=== PATIENT | female | born 1970 | race Hispanic/Latino ===

== ENCOUNTER 2018-01-13 12:31 | Inpatient (IN) | payer OTHER ==
[2018-01-13] MEDS ORDERED: Sodium Chloride 0.9% 1,000 ML IV STA (13:04)
--- NOTE | 2018-01-13 13:10 | ED PDOC ---
HPI: Abdomen Time Seen by Provider: 01/13/18 12:41 Chief Complaint (Nursing): Abdominal Pain Chief Complaint (Provider): abdominal pain History Per: Patient History/Exam Limitations: no limitations Onset/Duration Of Symptoms: Days (x3) Outside of [place] travel?: No Current Symptoms Are (Timing): Still Present Quality Of Discomfort: Cramping Associated Symptoms: Nausea, Diarrhea (non bloody, watery). denies: Fever, Chills, Vomiting Additional Complaint(s): Neda De Los Santos is a 47 year old female, with no significant past medical history , who presents to the emergency department complaining of a crampy abdominal pain associated with nausea and diarrhea onset for x3 days. Patient describes the diarrhea as non-bloody and watery. She denies any fever, chills, vomiting, recent travel, sick contacts or eating unusual foods. No further medical complaints. PMD: None provided. Past Medical History Reviewed: Historical Data, Nursing Documentation, Vital Signs Vital Signs: Last Vital Signs Temp 98.7 F 01/13/18 12:33 Pulse 88 01/13/18 12:33 Resp 16 01/13/18 12:33 BP 131/90 01/13/18 12:33 Pulse Ox 98 01/13/18 17:53 - Medical History PMH: No Chronic Diseases - Surgical History Surgical History: No Surg Hx - Family History Family History: States: No Known Family Hx - Social History Current smoker - smoking cessation education provided: No Alcohol: Social Drugs: Denies - Allergies Allergies/Adverse Reactions: Allergies Allergy/AdvReac Type Severity Reaction Status Date / Time tomato Allergy RASH Verified 01/13/18 12:33 Review of Systems ROS Statement: Except As Marked, All Systems Reviewed And Found Negative Constitutional: Negative for: Fever, Chills Gastrointestinal: Positive for: Nausea, Abdominal Pain (crampy), Diarrhea ( watery and non bloody). Negative for: Vomiting Physical Exam - Reviewed Nursing Documentation Reviewed: Yes Vital Signs Reviewed: Yes - Physical Exam Appears: Positive for: Non-toxic Head Exam: Positive for: ATRAUMATIC, NORMOCEPHALIC Skin: Positive for: Normal Color, Warm, Dry Eye Exam: Positive for: Normal appearance, EOMI, PERRL Neck: Positive for: Painless ROM Cardiovascular/Chest: Positive for: Regular Rate, Rhythm. Negative for: Murmur Respiratory: Positive for: Normal Breath Sounds. Negative for: Respiratory Distress Gastrointestinal/Abdominal: Positive for: Normal Exam, Soft. Negative for: Tenderness, Guarding, Rebound Back: Positive for: Normal Inspection. Negative for: L CVA Tenderness, R CVA Tenderness, Vertebral Tenderness Extremity: Positive for: Normal ROM (upper and lower extremities). Negative for : Deformity, Swelling Neurologic/Psych: Positive for: Alert, Oriented. Negative for: Motor/Sensory Deficits - Laboratory Results Result Diagrams: 01/13/18 13:40 01/13/18 13:40 - ECG O2 Sat by Pulse Oximetry: 98 (RA) Pulse Ox Interpretation: Normal Medical Decision Making Medical Decision Making: Initial Impression: abdominal pain & diarrhea. R/o gastroenteritis vs colitis Initial Plan: --CMP --CBC w/ differential --Pepcid 20 mg IVP --Sodium Chloride 1,000 ml IV 999 mls/hr --Zofran ODT 4 mg PO --Ova and parasite --Stool culture --Reevaluation 1730: CT Abdomen and Pelvis FINDINGS: LOWER THORAX: Unremarkable. LIVER: Unremarkable. No gross lesion or ductal dilatation. GALLBLADDER AND BILE DUCTS: Unremarkable. PANCREAS: Unremarkable. No gross lesion or ductal dilatation. SPLEEN: Unremarkable. ADRENALS: Unremarkable. No mass. KIDNEYS AND URETERS: Unremarkable. No hydronephrosis. No solid mass. VASCULATURE: Unremarkable. No aortic aneurysm. BOWEL: There is diffuse mural thickening throughout the colon especially in the ascending colon. The findings are consistent with colitis APPENDIX: Normal appendix. PERITONEUM: Unremarkable. No free fluid. No free air. LYMPH NODES: Unremarkable. No enlarged lymph nodes. BLADDER: Unremarkable. REPRODUCTIVE: Calcified fibroids. The largest measuring 3.8 cm BONES: No acute fracture. OTHER FINDINGS: None. IMPRESSION: Diffuse colitis [address] findings, IV Cippro and Flagyl ordered. Scribe Attestation: Documented by Jeff Grubbs, acting as a scribe for Christiane Damon MD Provider Scribe Attestation: All medical record entries made by the Scribe were at my direction and personally dictated by me. I have reviewed the chart and agree that the record accurately reflects my personal performance of the history, physical exam, medical decision making, and the department course for this patient. I have also personally directed, reviewed, and agree with the discharge instructions and disposition. Disposition - Disposition Forms: [employer] ([place])
[2018-01-13 13:55] LABS: BASO % 0.2 % (0.0-2.0); EOS % 0.4 % (0.0-4.0); HEMOGLOBIN 15.1 g/dL (12.0-16.0); LYMPH # 0.7 K/uL (1.0-4.3); LYMPH % 6.1 % (20.0-40.0); MEAN CELL VOLUME 94.1 fl (81.0-99.0); MEAN CORPUSCULAR HEMOGLOBIN 32.3 pg (27.0-31.0); MEAN CORPUSCULAR HGB CONC 34.3 g/dL (33.0-37.0); MEAN PLATELET VOLUME 8.2 fl (7.2-11.7); MONO # 0.8 K/uL (0.0-0.8); MONO % 7.2 % (0.0-10.0); NEUT # 9.9 K/uL (1.8-7.0); NEUT % 86.1 % (50.0-75.0); PLATELET COUNT 221 K/uL (130-400); RBC 4.67 Mil/uL (3.80-5.20); WHITE BLOOD COUNT 11.5 K/uL (4.8-10.8)
[2018-01-13 14:01] LABS: ALB/GLOB RATIO 1.3 (1.0-2.1); ALT/SGPT 49 U/L (9-52); AST/SGOT 40 U/L (14-36); BLOOD UREA NITROGEN 9 mg/dl (7-17); CALCIUM 9.4 mg/dL (8.4-10.2); GFR AFRICAN-AMERICAN > 60; GFR NON-AFRICAN AMERICAN > 60
[2018-01-13] MEDS ORDERED: Iohexol 240 (50 ml) PO ONE (14:26)
[2018-01-13] MEDS ORDERED: Iohexol 240 (50 ml) ONE (14:43)
[2018-01-13 14:58] LABS: BANDS 2 % (0-2); EOSINOPHIL 1 % (0-7); LYMPHOCYTE 8 % (20-50); MONOCYTE 5 % (0-10); NEUTROPHIL 84 % (42-75); PLATELET ESTIMATE NORMAL (NORMAL); TOTAL CELLS COUNTED 100
[2018-01-13] MEDS ORDERED: Iohexol 300 100 ML IJ ONE (15:28)
[2018-01-13] MEDS ORDERED: Sodium Chloride 0.9% 100 ML ONE (15:28)
--- NOTE | 2018-01-13 17:15 | CT ---
PROCEDURE: CT Abdomen and Pelvis with contrast HISTORY: abdominal pain, diarreha COMPARISON: None. TECHNIQUE: Contrast dose: 90 cc of Omni 300 Radiation dose: Total exam DLP = 560 mGy-cm. This CT exam was performed using one or more of the following dose reduction techniques: Automated exposure control, adjustment of the mA and/or kV according to patient size, and/or use of iterative reconstruction technique. FINDINGS: LOWER THORAX: Unremarkable. LIVER: Unremarkable. No gross lesion or ductal dilatation. GALLBLADDER AND BILE DUCTS: Unremarkable. PANCREAS: Unremarkable. No gross lesion or ductal dilatation. SPLEEN: Unremarkable. ADRENALS: Unremarkable. No mass. KIDNEYS AND URETERS: Unremarkable. No hydronephrosis. No solid mass. VASCULATURE: Unremarkable. No aortic aneurysm. BOWEL: There is diffuse mural thickening throughout the colon especially in the ascending colon. The findings are consistent with colitis APPENDIX: Normal appendix. PERITONEUM: Unremarkable. No free fluid. No free air. LYMPH NODES: Unremarkable. No enlarged lymph nodes. BLADDER: Unremarkable. REPRODUCTIVE: Calcified fibroids. The largest measuring 3.8 cm BONES: No acute fracture. OTHER FINDINGS: None. IMPRESSION: Diffuse colitis
[2018-01-13] MEDS ORDERED: Ciprofloxacin 400mg/200ml D5W 400 MG/200 ML BAG IVPB STA (17:58)
[2018-01-13] MEDS ORDERED: metroNIDAZOLE 500mg/100ml NS 100 ML IVPB SCH (18:00)
[2018-01-13] MEDS ORDERED: metroNIDAZOLE 500mg/100ml NS 100 ML IVPB ONE (18:31)
[2018-01-13] MEDS ORDERED: Ciprofloxacin 400mg/200ml D5W 400 MG/200 ML BAG IVPB ONE (18:32)
[2018-01-13] MEDS ORDERED: metroNIDAZOLE 500mg/100ml NS 100 ML IVPB STA (18:56)
[2018-01-13] MEDS ORDERED: Lactated Ringer's 1,000 ML IV STA (21:00)
[2018-01-13] MEDS ORDERED: Sodium Chloride 0.9% 1,000 ML IV SCH (21:30)
--- NOTE | 2018-01-13 21:49 | ED PDOC ---
- Laboratory Results Result Diagrams: 01/13/18 13:40 01/13/18 13:40 - ECG O2 Sat by Pulse Oximetry: 94 Medical Decision Making Medical Decision Making: Time: 1899 Patient signed out to me by Dr. Damon pending reevaluation. Time: 2099 As patient was completing her IV antibiotics course, her repeat temperature was 101 F. Provider informed from lab that patient is + for C. Diff antigen Time: 2117 Case discussed with Jaison De La Vega, who will admit patient on behalf of Dr. Cho. Diagnosis: C. Diff colitis Patient placed in isolation, additional IV fluids given. Tylenol, lactate and blood culture ordered. Scribe Attestation: Documented by Maral Gleason, acting as a scribe for Craig Hall MD Provider Scribe Attestation: All medical record entries made by the Scribe were at my direction and personally dictated by me. I have reviewed the chart and agree that the record accurately reflects my personal performance of the history, physical exam, medical decision making, and the department course for this patient. I have also personally directed, reviewed, and agree with the discharge instructions and disposition. Disposition - Clinical Impression Clinical Impression: C. difficile colitis - POA Present On Arrival: None - Disposition Disposition: Admitted as In-Patient Disposition Time: 22:00 Condition: FAIR
[2018-01-14] MEDS: metroNIDAZOLE 500mg/100ml NS 100 ML IVPB SCH ×3 (01:23→16:45)
--- NOTE | 2018-01-14 08:53 | CP.PCM.HP ---
History of Present Illness - History of Present Illness History of Present Illness: pt admitted for cdiff colitis after being on augmentin for a foot infection. c/ o diarrhea and decr po x 3 days bell [facility]. no f/c, n/v. no pain at present. bw noted. ct noted. gi pending Present on Admission - Present on Admission Any Indicators Present on Admission: No Review of Systems - Gastrointestinal Gastrointestinal: As Per HPI, Abdominal Pain, Cramping, Diarrhea Past Patient History - Past Medical History & Family History Past Medical History?: Yes - Past Social History Smoking Status: Never Smoked - CARDIAC Hx Cardiac Disorders: No - PULMONARY Hx Respiratory Disorders: No - NEUROLOGICAL Hx Neurological Disorder: No - HEENT Hx HEENT Problems: No - RENAL Hx Chronic Kidney Disease: No - ENDOCRINE/METABOLIC Hx Endocrine Disorders: No - HEMATOLOGICAL/ONCOLOGICAL Hx Blood Disorders: No - INTEGUMENTARY Hx Dermatological Problems: No - MUSCULOSKELETAL/RHEUMATOLOGICAL Hx Musculoskeletal Disorders: No Hx Falls: No - GASTROINTESTINAL Hx Gastrointestinal Disorders: No - GENITOURINARY/GYNECOLOGICAL Hx Genitourinary Disorders: Yes Other/Comment: Uterine fibroid - PSYCHIATRIC Hx Psychophysiologic Disorder: No Hx Substance Use: No - SURGICAL HISTORY Hx Surgeries: Yes Hx Orthopedic Surgery: Yes (Bunionectomy) Other/Comment: lymph node surgery - ANESTHESIA Hx Anesthesia: Yes Hx Anesthesia Reactions: No Hx Malignant Hyperthermia: No Has any member of the family had a problem w/ anesthesia?: No Meds Allergies/Adverse Reactions: Allergies Allergy/AdvReac Type Severity Reaction Status Date / Time tomato Allergy RASH Verified 01/13/18 12:33 Physical Exam - Constitutional Appears: Well, Non-toxic, No Acute Distress - Head Exam Head Exam: ATRAUMATIC, NORMAL INSPECTION, NORMOCEPHALIC - Eye Exam Eye Exam: EOMI, Normal appearance, PERRL Pupil Exam: NORMAL ACCOMODATION, PERRL - ENT Exam ENT Exam: Mucous Membranes Moist, Normal Exam - Neck Exam Neck exam: Positive for: Normal Inspection - Respiratory Exam Respiratory Exam: Clear to Auscultation Bilateral, NORMAL BREATHING PATTERN - Cardiovascular Exam Cardiovascular Exam: REGULAR RHYTHM - GI/Abdominal Exam GI & Abdominal Exam: Normal Bowel Sounds, Soft. absent: Tenderness - Extremities Exam Extremities exam: Positive for: full ROM, normal capillary refill, normal inspection, pedal pulses present - Back Exam Back exam: NORMAL INSPECTION - Neurological Exam Neurological exam: Alert, CN II-XII Intact, Normal Gait, Oriented x3, Reflexes Normal - Psychiatric Exam Psychiatric exam: Normal Affect, Normal Mood - Skin Skin Exam: Dry, Intact, Normal Color, Warm Results - Vital Signs Recent Vital Signs: Last Vital Signs Temp 98.2 F 01/14/18 08:12 Pulse 75 01/14/18 08:12 Resp 20 01/14/18 08:12 BP 103/66 01/14/18 08:12 Pulse Ox 95 01/14/18 08:12 - Labs Result Diagrams: 01/13/18 13:40 01/13/18 13:40 Labs: Laboratory Results - last 24 hr 01/13/18 01/13/18 01/13/18 13:40 13:40 18:05 WBC 11.5 H RBC 4.67 Hgb 15.1 Hct 44.0 MCV 94.1 MCH 32.3 H MCHC 34.3 RDW 13.0 Plt Count 221 MPV 8.2 Neut % (Auto) 86.1 H Lymph % (Auto) 6.1 L [place] % (Auto) 7.2 Eos % (Auto) 0.4 Baso % (Auto) 0.2 Neut # (Auto) 9.9 H Lymph # (Auto) 0.7 L [place] # (Auto) 0.8 Eos # (Auto) 0.0 Baso # (Auto) 0.0 Neutrophils % (Manual) 84 H Band Neutrophils % 2 Lymphocytes % (Manual) 8 L Monocytes % (Manual) 5 Eosinophils % (Manual) 1 Platelet Estimate Normal RBC Morphology Normal Sodium 137 Potassium 4.3 Chloride 96 L Carbon Dioxide 29 Anion Gap 16 BUN 9 Creatinine 0.7 Est GFR ( Amer) > 60 Est GFR (Non-Af Amer) > 60 Random Glucose 92 Lactic Acid Calcium 9.4 Total Bilirubin 0.4 AST 40 H ALT 49 Alkaline Phosphatase 82 Total Protein 7.1 Albumin 4.0 Globulin 3.0 Albumin/Globulin Ratio 1.3 C. difficile Ag & Toxin Positive antigen 01/13/18 21:40 WBC RBC Hgb Hct MCV MCH MCHC RDW Plt Count MPV Neut % (Auto) Lymph % (Auto) [place] % (Auto) Eos % (Auto) Baso % (Auto) Neut # (Auto) Lymph # (Auto) [place] # (Auto) Eos # (Auto) Baso # (Auto) Neutrophils % (Manual) Band Neutrophils % Lymphocytes % (Manual) Monocytes % (Manual) Eosinophils % (Manual) Platelet Estimate RBC Morphology Sodium Potassium Chloride Carbon Dioxide Anion Gap BUN Creatinine Est GFR ( Amer) Est GFR (Non-Af Amer) Random Glucose Lactic Acid 0.6 L Calcium Total Bilirubin AST ALT Alkaline Phosphatase Total Protein Albumin Globulin Albumin/Globulin Ratio C. difficile Ag & Toxin Assessment & Plan (1) DVT prophylaxis Assessment and Plan: cd and ae hose ambulation Status: Acute (2) C. difficile colitis Assessment and Plan: cipro/flagyl gi ivf, po as cara stool c/s pendinbg contact iso Status: Acute Decision To Admit - Pt Status Changed To: Hospital Disposition Of: Inpatient - Admit Certification Admit to Inpatient:: After my assessment, the patient will require hospitalization for at least two midnights. This is because of the severity of symptoms shown, intensity of services needed, and/or the medical risk in this patient being treated as an outpatient. - . Bed Request Type: Med/Surg Admitting Physician: Rao Cho
[2018-01-14] MEDS ORDERED: Ciprofloxacin 400mg/200ml D5W 400 MG/200 ML BAG IVPB SCH (09:00)
--- NOTE | 2018-01-14 12:48 | CP.PCM.CON ---
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 Patient recently developed an infection as a result of an ingrown toenail and was seen by podiatry two weeks ago. She was given prescription for Augmentin which used for four days before developing diffuse cramping abdominal pain, nausea and watery diarrhea. She stopped using medication but had persistence of symptoms and development of fever/chills so she came to the ED for further evaluation. CT scan showed diffuse colitis with initial stool evaluation showing presence of C diff antigen/toxin. Currently, she is having 5 + episodes of loose stool per day. Denies any recent travel or sick contacts. No antibiotic use prior to use of Augmentin last week. No history of prior C diff infection. 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 FHx: Discussed with patient and denies any significant family history Social: Denies tobacco, EtOH or illicit drug use Endo: No prior endoscopic evaluations Past Patient History - Past Medical History & Family History Past Medical History?: Yes - Past Social History Smoking Status: Never Smoked - CARDIAC Hx Cardiac Disorders: No - PULMONARY Hx Respiratory Disorders: No - NEUROLOGICAL Hx Neurological Disorder: No - HEENT Hx HEENT Problems: No - RENAL Hx Chronic Kidney Disease: No - ENDOCRINE/METABOLIC Hx Endocrine Disorders: No - HEMATOLOGICAL/ONCOLOGICAL Hx Blood Disorders: No - INTEGUMENTARY Hx Dermatological Problems: No - MUSCULOSKELETAL/RHEUMATOLOGICAL Hx Musculoskeletal Disorders: No Hx Falls: No - GASTROINTESTINAL Hx Gastrointestinal Disorders: No - GENITOURINARY/GYNECOLOGICAL Hx Genitourinary Disorders: Yes Other/Comment: Uterine fibroid - PSYCHIATRIC Hx Psychophysiologic Disorder: No Hx Substance Use: No - SURGICAL HISTORY Hx Surgeries: Yes Hx Orthopedic Surgery: Yes (Bunionectomy) Other/Comment: lymph node surgery - ANESTHESIA Hx Anesthesia: Yes Hx Anesthesia Reactions: No Hx Malignant Hyperthermia: No Has any member of the family had a problem w/ anesthesia?: No Meds Allergies/Adverse Reactions: Allergies Allergy/AdvReac Type Severity Reaction Status Date / Time tomato Allergy RASH Verified 01/13/18 12:33 - Medications Medications: Current Medications Acetaminophen (Tylenol 325mg Tab) 650 mg PO Q4 PRN PRN Reason: Fever >100.4 F Famotidine (Pepcid) 20 mg IVP Q12 [facility] Last Admin: 01/14/18 09:25 Dose: 20 mg Ciprofloxacin (Cipro 400mg/200ml Dsw) 400 mg in 200 mls @ 200 mls/hr IVPB Q12 [facility] PRN Reason: Protocol Last Admin: 01/14/18 09:21 Dose: 200 mls/hr Metronidazole (Flagyl 500mg/100ml Ns) 100 mls @ 100 mls/hr IVPB Q8 [facility] PRN Reason: Protocol Last Admin: 01/14/18 09:20 Dose: 100 mls/hr Sodium Chloride (Sodium Chloride 0.9%) 1,000 mls @ 125 mls/hr IV .Q8H [facility] Stop: 01/14/18 21:21 Last Admin: 01/13/18 22:41 Dose: 125 mls/hr Ondansetron HCl (Zofran Inj) 4 mg IVP Q6 PRN PRN Reason: Nausea/Vomiting Physical Exam - Constitutional Appears: Non-toxic, No Acute Distress - Eye Exam Eye Exam: EOMI, PERRL - ENT Exam ENT Exam: Mucous Membranes Moist - Respiratory Exam Respiratory Exam: Clear to Auscultation Bilateral. absent: Rales, Rhonchi, Wheezes - Cardiovascular Exam Cardiovascular Exam: RRR, +S1, +S2 - GI/Abdominal Exam GI & Abdominal Exam: Normal Bowel Sounds, Soft. absent: Distended, Firm, Guarding, Hernia, Organomegaly, Rigid, Tenderness - Extremities Exam Extremities exam: Positive for: normal inspection. Negative for: pedal edema - Neurological Exam Neurological exam: Alert, Oriented x3 - Psychiatric Exam Psychiatric exam: Normal Affect, Normal Mood - Skin Skin Exam: Dry, Warm Results - Vital Signs Recent Vital Signs: Last Vital Signs Temp 98.2 F 01/14/18 08:12 Pulse 75 01/14/18 08:12 Resp 20 01/14/18 08:12 BP 103/66 01/14/18 08:12 Pulse Ox 95 01/14/18 08:12 - Labs Result Diagrams: 01/13/18 13:40 01/13/18 13:40 Labs: Laboratory Results - last 24 hr 01/13/18 01/13/18 01/13/18 13:40 13:40 18:05 WBC 11.5 H RBC 4.67 Hgb 15.1 Hct 44.0 MCV 94.1 MCH 32.3 H MCHC 34.3 RDW 13.0 Plt Count 221 MPV 8.2 Neut % (Auto) 86.1 H Lymph % (Auto) 6.1 L [place] % (Auto) 7.2 Eos % (Auto) 0.4 Baso % (Auto) 0.2 Neut # (Auto) 9.9 H Lymph # (Auto) 0.7 L [place] # (Auto) 0.8 Eos # (Auto) 0.0 Baso # (Auto) 0.0 Neutrophils % (Manual) 84 H Band Neutrophils % 2 Lymphocytes % (Manual) 8 L Monocytes % (Manual) 5 Eosinophils % (Manual) 1 Platelet Estimate Normal RBC Morphology Normal Sodium 137 Potassium 4.3 Chloride 96 L Carbon Dioxide 29 Anion Gap 16 BUN 9 Creatinine 0.7 Est GFR ( Amer) > 60 Est GFR (Non-Af Amer) > 60 Random Glucose 92 Lactic Acid Calcium 9.4 Total Bilirubin 0.4 AST 40 H ALT 49 Alkaline Phosphatase 82 Total Protein 7.1 Albumin 4.0 Globulin 3.0 Albumin/Globulin Ratio 1.3 C. difficile Ag & Toxin Positive antigen 01/13/18 21:40 WBC RBC Hgb Hct MCV MCH MCHC RDW Plt Count MPV Neut % (Auto) Lymph % (Auto) [place] % (Auto) Eos % (Auto) Baso % (Auto) Neut # (Auto) Lymph # (Auto) [place] # (Auto) Eos # (Auto) Baso # (Auto) Neutrophils % (Manual) Band Neutrophils % Lymphocytes % (Manual) Monocytes % (Manual) Eosinophils % (Manual) Platelet Estimate RBC Morphology Sodium Potassium Chloride Carbon Dioxide Anion Gap BUN Creatinine Est GFR ( Amer) Est GFR (Non-Af Amer) Random Glucose Lactic Acid 0.6 L Calcium Total Bilirubin AST ALT Alkaline Phosphatase Total Protein Albumin Globulin Albumin/Globulin Ratio C. 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
[2018-01-15] MEDS: metroNIDAZOLE 500mg/100ml NS 100 ML IVPB SCH ×2 (00:58→09:05)
--- NOTE | 2018-01-15 07:50 | CP.PCM.PN ---
Subjective - Date & Time of Evaluation Date of Evaluation: 01/15/18 Time of Evaluation: 07:49 - Subjective Subjective: doing well, still w/ diarrhea nda abd cramping. no f/c, n/v consult appriciated. cipro dc as per recs adv cara as cara Objective - Vital Signs/Intake and Output Vital Signs (last 24 hours): Temp Pulse Resp BP Pulse Ox 98.3 F 78 18 92/56 L 95 01/14/18 23:33 01/14/18 23:33 01/14/18 23:33 01/14/18 23:33 01/14/18 23:33 - Medications Medications: Current Medications Acetaminophen (Tylenol 325mg Tab) 650 mg PO Q4 PRN PRN Reason: Fever >100.4 F Famotidine (Pepcid) 20 mg IVP Q12 [facility] Last Admin: 01/14/18 21:38 Dose: 20 mg Metronidazole (Flagyl 500mg/100ml Ns) 100 mls @ 100 mls/hr IVPB Q8 [facility] PRN Reason: Protocol Last Admin: 01/15/18 00:58 Dose: 100 mls/hr Ondansetron HCl (Zofran Inj) 4 mg IVP Q6 PRN PRN Reason: Nausea/Vomiting - Labs Labs: 01/13/18 13:40 01/13/18 13:40 - Constitutional Appears: Well, Non-toxic, No Acute Distress - Head Exam Head Exam: ATRAUMATIC, NORMAL INSPECTION, NORMOCEPHALIC - Eye Exam Eye Exam: EOMI, Normal appearance, PERRL Pupil Exam: NORMAL ACCOMODATION, PERRL - ENT Exam ENT Exam: Mucous Membranes Moist, Normal Exam - Neck Exam Neck Exam: Full ROM, Normal Inspection. absent: Lymphadenopathy - Respiratory Exam Respiratory Exam: Clear to Ausculation Bilateral, NORMAL BREATHING PATTERN - Cardiovascular Exam Cardiovascular Exam: REGULAR RHYTHM, RRR, +S1, +S2. absent: Murmur - GI/Abdominal Exam GI & Abdominal Exam: Soft, Normal Bowel Sounds. absent: Tenderness - Extremities Exam Extremities Exam: Full ROM, Normal Capillary Refill, Normal Inspection. absent : Joint Swelling, Pedal Edema - Back Exam Back Exam: NORMAL INSPECTION - Neurological Exam Neurological Exam: Alert, Awake, CN II-XII Intact, Normal Gait, Oriented x3 - Psychiatric Exam Psychiatric exam: Normal Affect, Normal Mood - Skin Skin Exam: Dry, Intact, Normal Color, Warm Assessment and Plan (1) DVT prophylaxis Status: Acute (2) C. difficile colitis Status: Acute - Assessment and Plan (Free Text) Assessment: (1) DVT prophylaxis Assessment and Plan: cd and ae hose ambulation Status: Acute (2) C. difficile colitis Assessment and Plan: flagyl gi ivf, po as cara stool c/s pendinbg-prelim negative contact iso dc when cara po Status: Acute
[2018-01-15 08:15] LABS: BASO % 0.6 % (0.0-2.0); EOS # 0.3 K/uL (0.0-0.7); EOS % 3.6 % (0.0-4.0); HEMOGLOBIN 12.2 g/dL (12.0-16.0); LYMPH # 1.2 K/uL (1.0-4.3); LYMPH % 16.3 % (20.0-40.0); MEAN CELL VOLUME 95.2 fl (81.0-99.0); MEAN CORPUSCULAR HEMOGLOBIN 32.1 pg (27.0-31.0); MEAN CORPUSCULAR HGB CONC 33.7 g/dL (33.0-37.0); MEAN PLATELET VOLUME 8.4 fl (7.2-11.7); MONO # 0.8 K/uL (0.0-0.8); MONO % 10.9 % (0.0-10.0); NEUT # 4.9 K/uL (1.8-7.0); NEUT % 68.6 % (50.0-75.0); RBC 3.82 Mil/uL (3.80-5.20); RED CELL DISTRIBUTION WIDTH 12.9 % (11.5-14.5); WHITE BLOOD COUNT 7.1 K/uL (4.8-10.8)
[2018-01-15 09:16] LABS: ALB/GLOB RATIO 1.1 (1.0-2.1); ALBUMIN 2.7 g/dL (3.5-5.0); ALT/SGPT 31 U/L (9-52); AST/SGOT 19 U/L (14-36); BLOOD UREA NITROGEN 4 mg/dl (7-17); CALCIUM 8.4 mg/dL (8.4-10.2); GFR AFRICAN-AMERICAN > 60; GFR NON-AFRICAN AMERICAN > 60
[2018-01-15] MEDS ORDERED: Potassium Chloride 20 mEq ER Tab PO ONE (09:17)
[2018-01-15 09:33] VITALS: O2SAT 97
[2018-01-15 16:00] VITALS: BP 102/70; PULSE 74; RESP 18; TEMP 98.2
--- NOTE | 2018-01-17 08:03 | CP.PCM.DIS ---
Provider - Provider Date of Admission: 01/13/18 21:09 Attending physician: Rao Cho MD Time Spent in preparation of Discharge (in minutes): 15 Diagnosis - Discharge Diagnosis (1) DVT prophylaxis Status: Acute (2) C. difficile colitis Status: Acute Hospital Course - Lab Results Lab Results: Micro Results 01/13/18 21:25 Blood-Venous Blood Culture - Preliminary NO GROWTH AFTER 48 HOURS 01/13/18 21:34 Blood-Venous Blood Culture - Preliminary NO GROWTH AFTER 48 HOURS 01/13/18 14:41 Stool Stool Culture - Final NO SALMONELLA, SHIGELLA OR CAMPYLOBACTER ISOLATED. 01/13/18 14:41 Stool Ova and Parasite Concentrate Exam - Final Most Recent Lab Values WBC 7.1 K/uL (4.8-10.8) 01/15/18 04:00 RBC 3.82 Mil/uL (3.80-5.20) 01/15/18 04:00 Hgb 12.2 g/dL (12.0-16.0) D 01/15/18 04:00 Hct 36.3 % (34.0-47.0) 01/15/18 04:00 MCV 95.2 fl (81.0-99.0) 01/15/18 04:00 MCH 32.1 pg (27.0-31.0) H 01/15/18 04:00 MCHC 33.7 g/dL (33.0-37.0) 01/15/18 04:00 RDW 12.9 % (11.5-14.5) 01/15/18 04:00 Plt Count 201 K/uL (130-400) 01/15/18 04:00 MPV 8.4 fl (7.2-11.7) 01/15/18 04:00 Neut % (Auto) 68.6 % (50.0-75.0) 01/15/18 04:00 Lymph % (Auto) 16.3 % (20.0-40.0) L 01/15/18 04:00 [place] % (Auto) 10.9 % (0.0-10.0) H 01/15/18 04:00 Eos % (Auto) 3.6 % (0.0-4.0) 01/15/18 04:00 Baso % (Auto) 0.6 % (0.0-2.0) 01/15/18 04:00 Neut # (Auto) 4.9 K/uL (1.8-7.0) 01/15/18 04:00 Lymph # (Auto) 1.2 K/uL (1.0-4.3) 01/15/18 04:00 [place] # (Auto) 0.8 K/uL (0.0-0.8) 01/15/18 04:00 Eos # (Auto) 0.3 K/uL (0.0-0.7) 01/15/18 04:00 Baso # (Auto) 0.0 K/uL (0.0-0.2) 01/15/18 04:00 Neutrophils % (Manual) 84 % (42-75) H 01/13/18 13:40 Band Neutrophils % 2 % (0-2) 01/13/18 13:40 Lymphocytes % (Manual) 8 % (20-50) L 01/13/18 13:40 Monocytes % (Manual) 5 % (0-10) 01/13/18 13:40 Eosinophils % (Manual) 1 % (0-7) 01/13/18 13:40 Platelet Estimate Normal (NORMAL) 01/13/18 13:40 RBC Morphology Normal (NORMAL) 01/13/18 13:40 Sodium 140 mmol/l (132-148) 01/15/18 04:00 Potassium 3.4 MMOL/L (3.6-5.0) L 01/15/18 04:00 Chloride 104 mmol/L (98-107) 01/15/18 04:00 Carbon Dioxide 25 mmol/L (22-30) 01/15/18 04:00 Anion Gap 14 (10-20) 01/15/18 04:00 BUN 4 mg/dl (7-17) L 01/15/18 04:00 Creatinine 0.6 mg/dl (0.7-1.2) L 01/15/18 04:00 Est GFR ( Amer) > 60 01/15/18 04:00 Est GFR (Non-Af Amer) > 60 01/15/18 04:00 Random Glucose 100 mg/dL (65-105) 01/15/18 04:00 Lactic Acid 0.6 MMOL/L (0.7-2.1) L 01/13/18 21:40 Calcium 8.4 mg/dL (8.4-10.2) 01/15/18 04:00 Total Bilirubin 0.2 mg/dl (0.2-1.3) 01/15/18 04:00 AST 19 U/L (14-36) 01/15/18 04:00 ALT 31 U/L (9-52) 01/15/18 04:00 Alkaline Phosphatase 44 U/L (38-126) 01/15/18 04:00 Total Protein 5.3 G/DL (6.3-8.2) L 01/15/18 04:00 Albumin 2.7 g/dL (3.5-5.0) L D 01/15/18 04:00 Globulin 2.5 gm/dL (2.2-3.9) 01/15/18 04:00 Albumin/Globulin Ratio 1.1 (1.0-2.1) 01/15/18 04:00 C. difficile Ag & Toxin Positive antigen (NEGATIVE) 01/13/18 18:05 - Hospital Course Hospital Course: flagyl gi bland diet tolerated well ivf Discharge Exam - Head Exam Head Exam: ATRAUMATIC, NORMAL INSPECTION, NORMOCEPHALIC Discharge Plan - Discharge Medications Prescriptions: Famotidine [Pepcid] 20 mg PO DAILY #30 tab Metronidazole [Flagyl] 500 mg PO Q8 #21 tablet - Follow Up Plan Condition: FAIR Disposition: HOME/ ROUTINE Instructions: Acute Abdomen (Belly Pain), Adult (DC), Antibiotic-Associated Diarrhea (DC), Clostridium difficile (DC) Additional Instructions: final dx-cdiff colitis po as cara, hydration fluids,rest,hygeine d/c w/ pt meds per med rec follow up with the GI doctor this week return to the ED with any worsening or concerning symptoms return to [facility] on Wednesday. Referrals: [facility] [Outside] Rao Cho MD [Staff Provider] - Rene Hernandez MD, PhD [Staff Provider] -
== END 2018-01-15 16:42 | disposition home or self-care (01) | DRG 373 ==
LOC: H.ER 12:31 → H.ERHOLD 21:09 → H.MEDSURG1 23:17
PROVIDERS: ADMIT Family Medicine; ATTEND Family Medicine
DX: A04.72 Enterocolitis due to Clostridium difficile, not specified as recurrent (principal); D25.9 Leiomyoma of uterus, unspecified